=== PATIENT | male | born 1995 | race African-American/Black ===

== ENCOUNTER 2019-11-22 11:34 | Outpatient (CLI) | payer BC ==
[~2019-11-22 11:34] MED LIST: Magnevist 469MG/ML 20 ML VIAL ONE
--- NOTE | 2019-11-22 12:51 | MRI ---
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 TECHNIQUE: Multiplanar, multisequence MRI of the brain performed pre- and post-IV injection of gadolinium based contrast agent. FINDINGS: There is an approximately 2 x 1.3 x 1.4 cm pineal cyst, with no solid component and no significant mu ral enhancement. It does displace the bilateral internal cerebral veins, which are patent. It mildly laterally displaces the medial edges of the bilateral thalami, especially the left. It also sl ightly inferiorly displaces and flattens the upper portion of the tectum (superior colliculi, mildly narrowing the aqueduct of Sylvius. However, it currently does not cause obstructive hydrocepha ronal, as demonstrated by normal size and configuration of the lateral, third, and fourth ventricles. There is an approximately 2 x 1 x 0.8 cm cyst at the right mesial temporal lobe region posteriorly, a butting the lateral aspect of the midbrain, in particular the right cerebral peduncle. There are thin enhancing septations at the anterior aspect of this cystic lesion. There is no abnormal intra-axial enhancement. No midline shift. No dural venous sinus thrombosis. No Chiari I malformation. No evidence of recent or remote intra-axial hemorrhage. No restricted diffusion. No dural venous sinus thrombosis. There are small bilateral mastoid effusions. 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
== END 2019-11-22 11:35 | disposition home or self-care (01) ==
LOC: MRI 11:34
PROVIDERS: ATTEND Family Medicine
DX: D35.4 Benign neoplasm of pineal gland (principal)
CPT/HCPCS: 70553; A9579